=== PATIENT | male | born 1990 | race Caucasian/White ===

== ENCOUNTER 2016-11-16 12:58 | Emergency (ER) | payer SELFPAY ==
[2016-11-16] MEDS ORDERED: ACETAMINOPHEN 325 MG TABLET PO ONE (13:05)
--- NOTE | 2016-11-16 13:08 | ER Document Report ---
ED Medical Screen (RME) - General Stated Complaint: WEAKNESS Mode of Arrival: Ambulatory Information source: Patient Notes: 26 y/o M presents to ED c/o fever, headache, and generalized weakness over the last 2 days. Reports had similar symptoms approximately 2 weeks ago but had resolved. I have greeted and performed a rapid initial assessment of this patient. A comprehensive ED assessment and evaluation of the patient, analysis of test results and completion of the medical decision making process will be conducted by additional ED providers. Physical Exam - Vital signs Vitals: Temp Pulse Resp BP Pulse Ox 99.8 F 105 H 20 122/72 100 11/16/16 13:02 11/16/16 13:02 11/16/16 13:02 11/16/16 13:02 11/16/16 13:02 - General General appearance: Alert In distress: None - Respiratory Respiratory status: No respiratory distress Course - Vital Signs Vital signs: Temp Pulse Resp BP Pulse Ox 99.8 F 105 H 20 122/72 100 11/16/16 13:02 11/16/16 13:02 11/16/16 13:02 11/16/16 13:02 11/16/16 13:02
[2016-11-16 13:59] LABS: ABSOLUTE EOSINOPHILS # (AUTO) 0.3 10^3/uL (0.0-0.6); ABSOLUTE LYMPHOCYTES (AUTO) 0.5 10^3/uL (0.5-4.7); ABSOLUTE NEUT (AUTO) 7.3 10^3/uL (1.7-8.2); BASOPHILS % (AUTO) 0.3 % (0-2); EOSINOPHILS % (AUTO) 2.8 % (0-6); HEMATOCRIT 42.3 % (37.9-51.0); HEMOGLOBIN 14.4 g/dL (13.5-17.0); HGB HCT DIFFERENCE 0.9; LYMPHOCYTES % (AUTO) 5.4 % (13-45); MEAN CORPUSCULAR HEMOGLOBIN 31.4 pg (27.0-33.4); MEAN CORPUSCULAR HGB CONC 34.1 g/dL (32.0-36.0); MEAN CORPUSCULAR VOLUME 92 fl (80-97); RED CELL DISTRIBUTION WIDTH 13.1 % (11.5-14.0); SEGMENTED NEUTROPHILS % (AUTO) 80.5 % (42-78); WHITE BLOOD COUNT 9.1 10^3/uL (4.0-10.5)
[2016-11-16 14:04] LABS: APPEARANCE,URINE CLEAR; BILIRUBIN,URINE NEGATIVE (NEGATIVE); GLUCOSE, URINE NEGATIVE (NEGATIVE); KETONES,URINE NEGATIVE (NEGATIVE); LEUKOCYTE ESTERASE,URINE TRACE (NEGATIVE); NITRITE,URINE NEGATIVE (NEGATIVE); PROTEIN,URINE NEGATIVE (NEGATIVE); URINE SPECIFIC GRAVITY 1.015; UROBILINOGEN,URINE NEGATIVE mg/dL (<2.0)
[2016-11-16 14:10] LABS: ALANINE AMINOTRANSFERASE 33 U/L (21-72); ALBUMIN 4.2 g/dL (3.5-5.0); ALKALINE PHOSPHATASE 64 U/L (38-126); ANION GAP 11 (5-19); ASPARTATE AMINO TRANSFERASE 20 U/L (17-59); BILIRUBIN,TOTAL 0.5 mg/dL (0.2-1.3); BLOOD UREA NITROGEN 12 mg/dL (7-20); CALCIUM 9.7 mg/dL (8.4-10.2); CARBON DIOXIDE 28 mmol/L (22-30); CHLORIDE 101 mmol/L (98-107); CREATININE RESULT 0.93 mg/dL (0.52-1.25); GLUCOSE 96 mg/dL (75-110); POTASSIUM 4.5 mmol/L (3.6-5.0); SODIUM 139.6 mmol/L (137-145); TOTAL PROTEIN 7.9 g/dL (6.3-8.2)
[2016-11-16] MEDS ORDERED: IBUPROFEN 600 MG TABLET PO ONE (16:43)
--- NOTE | 2016-11-16 17:27 | ER Document Report ---
HPI - HPI Patient complains to provider of: headache weakness fever Onset: Other Onset/Duration: Persistent Quality of pain: Achy Severity: Mild Pain Level: 1 Context: Patient presents to the emergency department with multiple complaints to include headache fever body aches weakness. Mom reports that he started feeling bad 2 days ago. This morning woke up and he was really warm. Patient has not received his flu vaccine. Denies vomiting diarrhea. Patient is laying on exam bed with a coat on, longsleeve shirt hat with the coat germain pulled up. Denies sore throat. Associated Symptoms: Body/muscle aches, Fever, Headache, Weakness Exacerbated by: Denies Relieved by: Denies Similar symptoms previously: Yes - same symptoms 2 weeks ago Recently seen / treated by doctor: No - DERM Skin Color: Normal Past Medical History - General Information source: Patient - Social History Smoking Status: Current Every Day Smoker Cigarette use (# per day): Yes Chew tobacco use (# tins/day): No Frequency of alcohol use: None Drug Abuse: None Occupation: none Lives with: Family Family History: None Patient has suicidal ideation: No Patient has homicidal ideation: No - Medical History Medical History: Negative Renal/ Medical History: Denies: Hx Peritoneal Dialysis Surgical Hx: Negative Vertical Provider Document - CONSTITUTIONAL Agree With Documented VS: Yes Exam Limitations: No Limitations General Appearance: WD/WN, No Apparent Distress - Nontoxic looking. - INFECTION CONTROL TRAVEL OUTSIDE OF THE [place] IN LAST 30 DAYS: No - HEENT HEENT: Atraumatic, Normal ENT Exam, Normocephalic. negative: Conjuctival Injection, Pharyngeal Exudate, Pharyngeal Erythema, Tympanic Membrane Red - NECK Neck: Normal Inspection, Supple - chin to chest without c/o pain. negative: Lymphadenopathy-Left, Lymphadenopathy-Right - RESPIRATORY Respiratory: Breath Sounds Normal, No Respiratory Distress. negative: Rhonchi, Wheezing O2 Sat by Pulse Oximetry: 100 - CARDIOVASCULAR Cardiovascular: Regular Rate, Regular Rhythm - GI/ABDOMEN Gastrointestinal: Abdomen Soft, Abdomen Non-Tender - MUSCULOSKELETAL/EXTREMETIES Musculoskeletal/Extremeties: MARKO MOSES - NEURO Level of Consciousness: Awake, Alert, Appropriate Motor/Sensory: No Motor Deficit - DERM Integumentary: Warm, Dry, No Rash Course - Re-evaluation Re-evalutation: 11/16/16 17:53 Patient and mom were instructed on all lab results. Negative leukocytosis, negative flu and mono test. Instructed on the importance of taking Motrin and Tylenol as indicated push fluids good hand washing. They verbalized understanding. Patient seems irritated because he was not "sick". Patient and mom were instructed on viral illness. - Vital Signs Vital signs: Temp Pulse Resp BP Pulse Ox 99.8 F 105 H 20 122/72 100 11/16/16 13:02 11/16/16 13:02 11/16/16 13:02 11/16/16 13:02 11/16/16 13:02 - Laboratory Result Diagrams: 11/16/16 13:34 11/16/16 13:34 Laboratory results interpreted by me: 11/16/16 11/16/16 13:34 13:34 Seg Neutrophils % 80.5 H Lymphocytes % 5.4 L Ur Leukocyte Esterase TRACE H Discharge - Discharge Clinical Impression: Fever, Headache, Weakness, Elevated blood pressure reading Condition: Stable Disposition: HOME, SELF-CARE Instructions: Acetaminophen, Fever ([facility]), Viral Syndrome ([facility]), Use of Over-The -Counter Ibuprofen ([facility]), Headache ([facility]) Additional Instructions: *You have been evaluated for flu like symptoms today, fever, headache, weakness Monitor your blood pressure. Your blood pressure was elevated today. This may be because you were anxious, in pain or because you need medication. It is important to follow up with your primary care provider for full evaluation. *Increase fluid intake as discussed *Monitor your temperature, take Tylenol or motrin as indicated *Follow up with a primary care provider within one week *Return to ED for worsening condition, changes, needs, concerns, needs Forms: Elevated Blood Pressure
[2016-11-16 17:41] VITALS: BP 110/67
== END 2016-11-16 17:51 | disposition home or self-care (01) ==
LOC: ER 12:58
DX: R50.9 Fever, unspecified (principal); R51 Headache; R53.1 Weakness; R03.0 Elevated blood-pressure reading, without diagnosis of hypertension; M79.1 Myalgia; F17.210 Nicotine dependence, cigarettes, uncomplicated
CPT/HCPCS: 36415; 80053; 81001; 85025; 86308; 87804; 99284

== ENCOUNTER 2018-02-26 14:33 | Emergency (ER) | payer MEDICAID ==
[2018-02-26] MEDS ORDERED: LIDOCAINE 1% INJ-PF (10 MG/ML) 30 ML SDV INJ ONE (14:58)
--- NOTE | 2018-02-26 15:01 | ER Document Report ---
ED Medical Screen (RME) - General Chief Complaint: Abscess Stated Complaint: ABSCESSES/GROIN AND BUTTOCKS AREA Time Seen by Provider: 02/26/18 14:47 Mode of Arrival: Ambulatory Information source: Patient Notes: 27-year-old male history of MRSA presents with complaints of abscesses of 4-5 day duration 2 on buttocks one of the left thigh I have greeted and performed a rapid initial assessment of this patient. A comprehensive ED assessment and evaluation of the patient, analysis of test results and completion of the medical decision making process will be conducted by additional ED providers. PHYSICAL EXAMINATION: GENERAL: Well-appearing, well-nourished and in no acute distress. HEAD: Atraumatic, normocephalic. EYES: Pupils equal round extraocular movements intact, conjunctiva are normal. ENT: Nares patent NECK: Normal range of motion LUNGS: No respiratory distress Musculoskeletal: Normal range of motion NEUROLOGICAL: Normal speech, normal gait. PSYCH: Normal mood, normal affect. SKIN: Abscess noted of the left medial thigh 1 abscess each on buttocks TRAVEL OUTSIDE OF THE [place] IN LAST 30 DAYS: No - Related Data Allergies/Adverse Reactions: No Known Allergies Allergy (Verified 02/26/18 14:34) Past Medical History Renal/ Medical History: Denies: Hx Peritoneal Dialysis Physical Exam - Vital signs Vitals: Temp Pulse Resp BP Pulse Ox 97.5 F 75 18 137/86 H 100 02/26/18 14:43 02/26/18 14:43 02/26/18 14:43 02/26/18 14:43 02/26/18 14:43 Course - Vital Signs Vital signs: Temp Pulse Resp BP Pulse Ox 97.5 F 75 18 137/86 H 100 02/26/18 14:43 02/26/18 14:43 02/26/18 14:43 02/26/18 14:43 02/26/18 14:43
[2018-02-26] MEDS ORDERED: LIDOCAINE 4%/TETRACAINE 0.5%/EPI 0.18% 5 ML TOPICAL SOLN TOP ONE (15:54)
[2018-02-26] MEDS ORDERED: CEPHALEXIN 500 MG CAPSULE PO ONE (15:54)
[2018-02-26] MEDS ORDERED: SULFAMETHOXAZOLE/TRIMETHOPRIM 800-160 MG TABLET PO ONE (15:54)
[2018-02-26] MEDS ORDERED: IBUPROFEN 800 MG TABLET PO ONE (15:54)
[2018-02-26] MEDS ORDERED: ACETAMINOPHEN 325 MG TABLET PO ONE (15:54)
--- NOTE | 2018-02-26 15:55 | ER Document Report ---
HPI - HPI Patient complains to provider of: multiple abscess Onset: Last week Onset/Duration: Gradual Pain Level: 5 Context: 27 yo male with no hx MRSA has multiple abscess (left buttocks, right buttocks, left thigh, rash left axilla, No fever. Associated Symptoms: None Exacerbated by: Denies Relieved by: Denies - ROS ROS below otherwise negative: Yes Systems Reviewed and Negative: Yes All other systems reviewed and negative - DERM Skin Color: Normal Past Medical History - General Information source: Patient - Social History Smoking Status: Never Smoker Chew tobacco use (# tins/day): No Frequency of alcohol use: None Drug Abuse: None Lives with: Family Family History: None Patient has suicidal ideation: No Patient has homicidal ideation: No - Medical History Medical History: Negative Renal/ Medical History: Denies: Hx Peritoneal Dialysis Surgical Hx: Negative Vertical Provider Document - CONSTITUTIONAL Agree With Documented VS: Yes Exam Limitations: No Limitations General Appearance: No Apparent Distress - INFECTION CONTROL TRAVEL OUTSIDE OF THE [place] IN LAST 30 DAYS: No - HEENT HEENT: Normocephalic - NECK Neck: Supple - RESPIRATORY Respiratory: Breath Sounds Normal, No Respiratory Distress - CARDIOVASCULAR Cardiovascular: Regular Rate, Regular Rhythm - NEURO Level of Consciousness: Awake - DERM Integumentary: Abscess - induranted abscess 2 cm left buttocks, smalled papule right buttocks, folliculitis left axilla, indurated 1 cm abscess left medial lighthouse Course - Vital Signs Vital signs: Temp Pulse Resp BP Pulse Ox 97.5 F 75 18 137/86 H 100 02/26/18 14:43 02/26/18 14:43 02/26/18 14:43 02/26/18 14:43 02/26/18 14:43 Procedures - Incision and Drainage Left Buttock Time completed: 17:18 Type: Simple - x cut to left buttocks, and to left anterior medial thigh Anesthetic type: 1% Lidocaine mL's of anesthetic: 6 - total for both Blade size: 11 I&D procedure: Betadine prep applied, Sterile dressing applied Incision Method: Incision made by scalpel Discharge - Discharge Clinical Impression: Folliculitis, Left thigh abscess I&D, Left buttocks abscess I&D Condition: Good Disposition: HOME, SELF-CARE Instructions: Bactroban Ointment ([facility]), Cephalexin ([facility]), Folliculitis ([facility]), Post Incision and Drainage, Trimethoprim-Sulfa ([facility]) Additional Instructions: warm compress keflex septra antibacterial soap shower daily Small amount of Bactroban ointment in both nostrils and squeeze her nostrils together twice a day for 5 days Any lesions that you have that are small bactroban can be used to kill the bacteria Return to the emergency room any fever or worsening symptoms of the areas Take the dressings off in 2 days because there is packing in each of the areas, after you remove the dressings then used the washcloth soap and water vigorously in the shower to each area so they will close to early Prescriptions: Ibuprofen [Motrin 800 mg Tablet] 800 mg PO Q8HP PRN #30 tablet PRN Reason: Cephalexin Monohydrate [Keflex 500 mg Capsule] 500 mg PO QID #28 capsule Sulfamethoxazole/Trimethoprim [Sulfamethoxazole-Tmp Ds Tablet] 1 each PO BID # 14 tablet Forms: Return to Work
[2018-02-26] MEDS ORDERED: MUPIROCIN 2% OINTMENT 22 GM TP ONE (17:19)
[2018-02-26 17:46] VITALS: BP 130/67
== END 2018-02-26 17:46 | disposition home or self-care (01) ==
LOC: ER 14:33
DX: L02.31 Cutaneous abscess of buttock (principal); L02.416 Cutaneous abscess of left lower limb; L73.9 Follicular disorder, unspecified; R23.8 Other skin changes
CPT/HCPCS: 99283; 10061; J3490 ×6

== ENCOUNTER 2018-05-06 19:20 | Emergency (ER) | payer MEDICAID ==
--- NOTE | 2018-05-06 20:20 | ER Document Report ---
ED Medical Screen (RME) - General Chief Complaint: Foot Pain Stated Complaint: POSSIBLE INSECT BITE Time Seen by Provider: 05/06/18 20:19 Mode of Arrival: Wheelchair Information source: Patient TRAVEL OUTSIDE OF THE [place] IN LAST 30 DAYS: No - HPI Patient complains to provider of: insect bite Onset: Other - pt. with insect bite 2 days ago to R foot -- now with increased pain, redness, and swelling to foot. - Related Data Allergies/Adverse Reactions: No Known Allergies Allergy (Verified 02/26/18 14:34) Past Medical History Renal/ Medical History: Denies: Hx Peritoneal Dialysis Physical Exam - Vital signs Vitals: Temp Pulse Resp BP Pulse Ox 99.1 F 93 20 129/73 H 97 05/06/18 19:31 05/06/18 19:31 05/06/18 19:31 05/06/18 19:31 05/06/18 19:31 Course - Vital Signs Vital signs: Temp Pulse Resp BP Pulse Ox 99.1 F 93 20 129/73 H 97 05/06/18 19:31 05/06/18 19:31 05/06/18 19:31 05/06/18 19:31 05/06/18 19:31
[2018-05-06 21:33] LABS: ABSOLUTE BASOPHILS # (AUTO) 0.1 10^3/uL (0.0-0.2); ABSOLUTE EOSINOPHILS # (AUTO) 0.4 10^3/uL (0.0-0.6); ABSOLUTE MONOCYTES (AUTO) 1.2 10^3/uL (0.1-1.4); BASOPHILS % (AUTO) 0.4 % (0-2); EOSINOPHILS % (AUTO) 2.8 % (0-6); HEMATOCRIT 40.2 % (37.9-51.0); HEMOGLOBIN 13.7 g/dL (13.5-17.0); LYMPHOCYTES % (AUTO) 14.9 % (13-45); MEAN CORPUSCULAR HEMOGLOBIN 31.5 pg (27.0-33.4); MEAN CORPUSCULAR HGB CONC 34.2 g/dL (32.0-36.0); MEAN CORPUSCULAR VOLUME 92 fl (80-97); PLATELET COUNT 292 10^3/uL (150-450); RED BLOOD COUNT 4.36 10^6/uL (4.35-5.55); SEGMENTED NEUTROPHILS % (AUTO) 72.9 % (42-78); TOTAL CELLS COUNTED % (AUTO) 100 %; WHITE BLOOD COUNT 13.6 10^3/uL (4.0-10.5)
[2018-05-06 22:06] LABS: ALANINE AMINOTRANSFERASE 17 U/L (21-72); ALBUMIN 4.5 g/dL (3.5-5.0); ALKALINE PHOSPHATASE 70 U/L (38-126); ANION GAP 14 (5-19); ASPARTATE AMINO TRANSFERASE 23 U/L (17-59); BILIRUBIN,DIRECT 0.3 mg/dL (0.0-0.4); BILIRUBIN,TOTAL 0.8 mg/dL (0.2-1.3); BLOOD UREA NITROGEN 11 mg/dL (7-20); CALCIUM 9.5 mg/dL (8.4-10.2); CARBON DIOXIDE 30 mmol/L (22-30); CHLORIDE 92 mmol/L (98-107); GLUCOSE 82 mg/dL (75-110); POTASSIUM 4.2 mmol/L (3.6-5.0); SODIUM 136.3 mmol/L (137-145); TOTAL PROTEIN 8.2 g/dL (6.3-8.2)
[2018-05-07] MEDS ORDERED: ACETAMINOPHEN 325 MG TABLET PO ONE (01:26)
[2018-05-07] MEDS ORDERED: HYDROCODONE/ACETAMINOPHEN 5-325 MG (6 TAB/ER DISP) PO PRN (01:26)
[2018-05-07] MEDS ORDERED: IBUPROFEN 600 MG TABLET PO ONE (01:26)
[2018-05-07] MEDS ORDERED: MORPHINE SULFATE IR 15 MG TABLET PO ONE (01:26)
[2018-05-07] MEDS ORDERED: CEPHALEXIN 500 MG CAPSULE PO ONE (01:26)
[2018-05-07] MEDS ORDERED: ONDANSETRON ODT 4 MG TAB (6 TAB/ER DISP) PO PRN (01:26)
[2018-05-07] MEDS ORDERED: SULFAMETHOXAZOLE/TRIMETHOPRIM 800-160 MG TABLET PO ONE (01:26)
--- NOTE | 2018-05-07 01:32 | ER Document Report ---
ED General - General Chief Complaint: Foot Pain Stated Complaint: POSSIBLE INSECT BITE Time Seen by Provider: 05/06/18 20:19 Mode of Arrival: Wheelchair Notes: Patient is a 27-year-old male without chronic medical problems who presents with 2 days of a rash and swelling to his right foot. The patient states that the area started as a possible spider bite although he is uncertain whether or not that is the accurate origin of the area of irritation. He states that since that time he has noted swelling and pain to the area that has gotten progressively worse. He describes a severe, throbbing, constant pain to the area worsened by touching the area or attempting to ambulate. Nothing improves the pain. States this feels similar to when he has had a MRSA infection on his foot in the past. He denies any history of immune compromise, IV drug use. No history of diabetes. He denies any fever or constitutional symptoms. He has not seen his general doctor regarding today's concerns. TRAVEL OUTSIDE OF THE [place] IN LAST 30 DAYS: No - Related Data Allergies/Adverse Reactions: No Known Allergies Allergy (Verified 05/06/18 20:21) Past Medical History - General Information source: Patient - Social History Smoking Status: Current Some Day Smoker Frequency of alcohol use: None Drug Abuse: None Lives with: Family Family History: Reviewed & Not Pertinent Patient has suicidal ideation: No Patient has homicidal ideation: No Renal/ Medical History: Denies: Hx Peritoneal Dialysis Review of Systems - Review of Systems Notes: Constitutional: Negative for fever. HENT: Negative for sore throat. Eyes: Negative for visual changes. Cardiovascular: Negative for chest pain. Respiratory: Negative for shortness of breath. Gastrointestinal: Negative for abdominal pain, vomiting or diarrhea. Genitourinary: Negative for dysuria. Musculoskeletal: Negative for back pain. Skin: Positive for right foot abscess and associated cellulitis Neurological: Negative for headaches, weakness or numbness. 10 point ROS negative except as marked above and in HPI. Physical Exam - Vital signs Vitals: Temp Pulse Resp BP Pulse Ox 99.1 F 93 20 129/73 H 97 05/06/18 19:31 05/06/18 19:31 05/06/18 19:31 05/06/18 19:31 05/06/18 19:31 Interpretation: Normal Notes: PHYSICAL EXAMINATION: GENERAL: Well-appearing, well-nourished and in no acute distress. HEAD: Atraumatic, normocephalic. EYES: Pupils equal round and reactive to light, extraocular movements intact, sclera anicteric, conjunctiva are normal. ENT: nares patent, oropharynx clear without exudates. Moist mucous membranes. NECK: Normal range of motion, supple without lymphadenopathy LUNGS: Breath sounds clear to auscultation bilaterally and equal. No wheezes rales or rhonchi. HEART: Regular rate and rhythm without murmurs ABDOMEN: Soft, nontender, normoactive bowel sounds. No guarding, no rebound. No masses appreciated. EXTREMITIES: Normal range of motion, no pitting or edema. No cyanosis. NEUROLOGICAL: No focal neurological deficits. Moves all extremities spontaneously and on command. PSYCH: Normal mood, normal affect. SKIN: Warm, Dry, normal turgor, there blister with associated surrounding cellulitis on the lateral and plantar surface of the distal right foot near the great toe. Total cellulitis areas approximately 2 x 3 cm Course - Re-evaluation Re-evalutation: 05/07/18 01:29 Patient presents with a blister with associated surrounding cellulitis on the lateral and plantar surface of the distal right foot near the great toe. The blister itself was debrided with removal of all the overlying epidermal tissue. Extensive amounts of purulent material were obtained underneath the blister. The wound was debrided until healthy, sensate tissue was encountered. The wound was then cleaned and dressed. The patient is otherwise nontoxic in appearance. No spreading redness to the remainder of the foot or calf. Patient has vitals that are within normal limits, minimally elevated white blood cell count. Patient was started on cephalexin and Bactrim for strep and MRSA coverage. I have emphasized heavily with the patient that I am concerned about the degree of this infection and want him to have very low threshold to return to the emergency department. We have extensively reviewed signs and symptoms that would be consistent with bacteremia or progressing localized infection. I have emphasized the need to follow-up closely with his primary care doctor or return for a wound check to the emergency room within the next 48 hours. He has agreed, has explained back to me an understanding of the severity of this infection and the need for close follow-up as well as returning to the emergency department immediately if there is any progression of the infection. At this point I do not believe the patient mandates hospitalization for IV antibiotics or MRI imaging of the foot however I would deem these measures being indicated if the patient has any progression of the current infection. 05/07/18 02:55 - Vital Signs Vital signs: Temp Pulse Resp BP Pulse Ox 98.0 F 73 14 129/74 H 98 05/07/18 01:50 05/07/18 01:50 05/07/18 01:50 05/07/18 01:50 05/07/18 01:50 - Laboratory Result Diagrams: 05/06/18 20:53 05/06/18 20:53 Laboratory results interpreted by me: 05/06/18 05/06/18 20:53 20:53 WBC 13.6 H Absolute Neutrophils 10.0 H Sodium 136.3 L Chloride 92 L ALT 17 L Procedures - Incision and Drainage Right Foot Type: Complex Anesthetic type: 1% Lidocaine mL's of anesthetic: 4 Blade size: 11 I&D procedure: Betadine prep applied Incision Method: Incision made by scalpel Amount/type of drainage: 5 cc of purulent drainage Discharge - Discharge Clinical Impression: Foot abscess, right, Cellulitis of right foot Condition: Good Disposition: HOME, SELF-CARE Additional Instructions: The rash is likely due to infection of your skin. You need to take the antibiotics as prescribed. Do not stop even if the rash goes away until you have completed all the antibiotics. The area of redness was traced out here in the emergency department with a marking pen. You need to return to emergency department if the redness spreads outside of this area by more than 2 cm in any direction. You should also return if you develop fevers with temperature greater than 101, persistent vomiting, worsening pain, or have any other symptoms that are concerning to you. As we discussed, I am concerned about the degree of your infection and I want you to have a very low threshold to return to the emergency department particularly for any of the above symptoms we discussed. I also want you to follow-up with your primary care doctor on Wednesday and if you are unable to get to an appointment I want you to come back to the emergency department for recheck of your wound. Prescriptions: Cephalexin Monohydrate [Keflex 500 mg Capsule] 500 mg PO Q6H 7 Days capsule Sulfamethoxazole/Trimethoprim [Bactrim Ds Tablet] 2 tab PO BID #28 tablet Forms: Return to Work
[2018-05-07 01:51] VITALS: BP 129/74
== END 2018-05-07 02:17 | disposition home or self-care (01) ==
LOC: ER 19:20
DX: L02.611 Cutaneous abscess of right foot (principal); L03.115 Cellulitis of right lower limb; F17.200 Nicotine dependence, unspecified, uncomplicated; Z86.14 Personal history of Methicillin resistant Staphylococcus aureus infection
CPT/HCPCS: 99283; 36415; 85025; 80053; 10060; J3490 ×3

== ENCOUNTER 2018-05-08 11:21 | Inpatient (IN) | payer MEDICAID ==
[2018-05-08] MEDS ORDERED: ACETAMINOPHEN 325 MG TABLET PO ONE (11:53)
[2018-05-08] MEDS ORDERED: ONDANSETRON HCL INJ/PF 4 MG/2 ML SDV IV ONE (11:54)
[2018-05-08] MEDS ORDERED: HYDROMORPHONE HCL INJ/PF 2 MG/ML AMPULE IV ONE (11:54)
--- NOTE | 2018-05-08 11:56 | ER Document Report ---
ED General - General Mode of Arrival: Ambulatory Information source: Patient TRAVEL OUTSIDE OF THE [place] IN LAST 30 DAYS: No <SHELBY TOBIN - Last Filed: 05/08/18 12:11> <HELEN HERNANDEZ - Last Filed: 05/08/18 15:29> - General Chief Complaint: Wound Infection Stated Complaint: RIGHT FOOT PAIN,NAUSEA Time Seen by Provider: 05/08/18 11:41 Notes: Patient is a 27 year old male presenting to the emergency department complaining of right great toe pain. Patient was seen in the emergency department 2 days ago complaining of a rash and swelling on the right great toe. Patient was diagnosed with cellulitis and a foot abscess of the right foot and discharged home with Keflex, Bactrim and a Vicodin dispense back. Today, patient states the pain has worsened and complains of chills. (SHELBY TOBIN) - Related Data Allergies/Adverse Reactions: No Known Allergies Allergy (Verified 05/08/18 11:26) Past Medical History - General Information source: Patient - Social History Smoking Status: Current Every Day Smoker Cigarette use (# per day): Yes - 1/2 PPD Chew tobacco use (# tins/day): No Smoking Education Provided: No Family History: Reviewed & Not Pertinent Infectious Medical History: Reports: Hx MRSA <SHELBY TOBIN - Last Filed: 05/08/18 12:11> Review of Systems - Review of Systems Constitutional: See HPI, Chills EENT: No symptoms reported Cardiovascular: No symptoms reported Respiratory: No symptoms reported Gastrointestinal: No symptoms reported Genitourinary: No symptoms reported Male Genitourinary: No symptoms reported Musculoskeletal: See HPI Skin: No symptoms reported Hematologic/Lymphatic: No symptoms reported Neurological/Psychological: No symptoms reported -: Yes All other systems reviewed and negative <SHELBY TOBIN - Last Filed: 05/08/18 12:11> Physical Exam <SHELBY TOBIN - Last Filed: 05/08/18 12:11> <HELEN HERNANDEZ - Last Filed: 05/08/18 15:29> - Vital signs Vitals: Temp Pulse Resp BP Pulse Ox 98.4 F 125 H 32 H 119/99 H 100 05/08/18 11:25 05/08/18 11:25 05/08/18 11:25 05/08/18 11:25 05/08/18 11:25 - Notes Notes: GENERAL: Alert, moaning in bed, appears uncomfortable. No acute distress. HEAD: Normocephalic, atraumatic. EYES: Pupils equal, round, and reactive to light. Extraocular movements intact. ENT: Oral mucosa moist, tongue midline. NECK: Full range of motion. Supple. Trachea midline. LUNGS: Clear to auscultation bilaterally, no wheezes, rales, or rhonchi. No respiratory distress. HEART: Tachycardic. No murmurs, gallops, or rubs. EXTREMITIES: Moves all 4 extremities spontaneously. NEUROLOGICAL: Alert and oriented x3. Normal speech. PSYCH: Normal affect, normal mood. SKIN: Warm, dry, normal turgor. Ball of right foot extending to the medial distal foot over first metatarsal is a swollen previously debrided wound, approximately 1x3cm with fresh granulating tissue. Dorsally extending from wound edges is some erythema. (SHELBY TOBIN) Course - Laboratory Result Diagrams: 05/08/18 11:40 05/08/18 11:40 <SHELBY TOBIN - Last Filed: 05/08/18 12:11> - Laboratory Result Diagrams: 05/08/18 11:40 05/08/18 11:40 - Diagnostic Test Radiology reviewed: Image reviewed - X-ray of the right foot does not show any gas in the soft tissues or bony erosions - Consults Dr. Villa Time consulted: 14:20 Consulted provider: will come to ER <HELEN HERNANDEZ - Last Filed: 05/08/18 15:29> - Re-evaluation Re-evalutation: 05/08/18 15:24 The patient became more hypotensive after about 1.5 L normal saline. He will get 1/3 L after the second 1 finishes. Blood pressure is now 88/65 with a pulse of 89. (HELEN HERNANDEZ) - Vital Signs Vital signs: Temp Pulse Resp BP Pulse Ox 98.9 F 125 H 16 107/68 95 05/08/18 14:56 05/08/18 11:25 05/08/18 14:01 05/08/18 14:00 05/08/18 14:01 - Laboratory Laboratory results interpreted by me: 05/08/18 05/08/18 05/08/18 11:40 11:40 11:40 WBC 2.5 L D Seg Neutrophils % 80.4 H Monocytes % 0.6 L Absolute Monocytes 0.0 L Lactic Acid 3.9 H ALT 15 L Urine Urobilinogen 05/08/18 12:40 WBC Seg Neutrophils % Monocytes % Absolute Monocytes Lactic Acid ALT Urine Urobilinogen 2.0 H Critical Care Note - Critical Care Note Total time excluding time spent on procedures (mins): 40 <HELEN HERNANDEZ - Last Filed: 05/08/18 15:29> Discharge <SHELBY TOBIN - Last Filed: 05/08/18 12:11> - Discharge Admitting Provider: Hospitalist Unit Admitted: [facility] <HELEN HERNANDEZ - Last Filed: 05/08/18 15:29> - Discharge Clinical Impression: Cellulitis of right foot Fever Qualifiers: Fever type: unspecified Qualified Code(s): R50.9 - Fever, unspecified Neutropenia Qualifiers: Neutropenia type: unspecified Qualified Code(s): D70.9 - Neutropenia, unspecified Sepsis Qualifiers: Sepsis type: sepsis due to unspecified organism Qualified Code(s): A41.9 - Sepsis, unspecified organism Hypotension Qualifiers: Hypotension type: unspecified hypotension type Qualified Code(s): I95.9 - Hypotension, unspecified Condition: Stable Disposition: ADMITTED INPATIENT Scribe Attestation: 05/08/18 12:25 I personally performed the services described in the documentation, reviewed and edited the documentation which was dictated to the scribe in my presence, and it accurately records my words and actions. (HELEN HERNANDEZ) Scribe Documentation - Scribe Written by Caseyibluci:: Irina Lopez, 05/08/2018 12:10 acting as scribe for :: Shayy <SHELBY TOBIN - Last Filed: 05/08/18 12:11>
[2018-05-08] MEDS ORDERED: KETOROLAC TROMETHAMINE INJ/PF 30 MG/1 ML SDV IV ONE (11:57)
[2018-05-08 12:14] LABS: ALANINE AMINOTRANSFERASE 15 U/L (21-72); ALBUMIN 4.4 g/dL (3.5-5.0); ALKALINE PHOSPHATASE 87 U/L (38-126); ANION GAP 17 (5-19); ASPARTATE AMINO TRANSFERASE 22 U/L (17-59); BILIRUBIN,DIRECT 0.3 mg/dL (0.0-0.4); BILIRUBIN,TOTAL 0.9 mg/dL (0.2-1.3); BLOOD UREA NITROGEN 15 mg/dL (7-20); CALCIUM 9.6 mg/dL (8.4-10.2); CARBON DIOXIDE 23 mmol/L (22-30); CHLORIDE 101 mmol/L (98-107); CREATINE KINASE 141 U/L (55-170); GLUCOSE 99 mg/dL (75-110); POTASSIUM 4.3 mmol/L (3.6-5.0); SODIUM 140.5 mmol/L (137-145); TOTAL PROTEIN 8.2 g/dL (6.3-8.2)
[2018-05-08 12:15] LABS: BASOPHILS % (AUTO) 0.1 % (0-2); HEMOGLOBIN 14.3 g/dL (13.5-17.0); TOTAL CELLS COUNTED % (AUTO) 100 %
[2018-05-08 12:23] LABS: ABSOLUTE LYMPHOCYTES (AUTO) 0.5 10^3/uL (0.5-4.7); EOSINOPHILS % (AUTO) 0.4 % (0-6); HEMATOCRIT 41.6 % (37.9-51.0); LYMPHOCYTES % (AUTO) 18.5 % (13-45); MEAN CORPUSCULAR HEMOGLOBIN 31.5 pg (27.0-33.4); MEAN CORPUSCULAR HGB CONC 34.3 g/dL (32.0-36.0); MEAN CORPUSCULAR VOLUME 92 fl (80-97); MONOCYTES % (AUTO) 0.6 % (3-13); PLATELET COUNT 254 10^3/uL (150-450); RED BLOOD COUNT 4.54 10^6/uL (4.35-5.55); RED CELL DISTRIBUTION WIDTH 12.9 % (11.5-14.0); SEGMENTED NEUTROPHILS % (AUTO) 80.4 % (42-78)
[2018-05-08] MEDS ORDERED: VANCOMYCIN HCL INJ 1000 MG VIAL IV ONE (12:24)
[2018-05-08 12:25] LABS: WHITE BLOOD COUNT 2.5 10^3/uL (4.0-10.5)
[2018-05-08] MEDS ORDERED: NORMAL SALINE 1000 ML 1,000 ML IV ONE ×3 (12:51→15:23)
--- NOTE | 2018-05-08 14:33 | RADIOLOGY REPORT (SQ) ---
EXAM DESCRIPTION: FOOT RIGHT COMPLETE COMPLETED DATE/TIME: 05/08/2018 2:23 pm REASON FOR STUDY: Cellulitis, concern for osteomyelitis COMPARISON: None. NUMBER OF VIEWS: Three views. TECHNIQUE: AP, lateral and oblique radiographic images acquired of the right foot. LIMITATIONS: None. FINDINGS: MINERALIZATION: Normal. BONES: No acute fracture or dislocation. No worrisome bone lesions. JOINTS: No effusions. SOFT TISSUES: No soft tissue swelling. No foreign body. OTHER: No other significant finding. IMPRESSION: NEGATIVE STUDY OF THE RIGHT FOOT. NO RADIOGRAPHIC EVIDENCE OF ACUTE INJURY. TECHNICAL DOCUMENTATION: JOB ID: [id number] Patient Feed- All Rights Reserved Reading location - IP/workstation name: MARY
[2018-05-08 14:41] LABS: APPEARANCE,URINE SLIGHTLY-CLOUDY; BILIRUBIN,URINE NEGATIVE (NEGATIVE); COLOR,URINE YELLOW; GLUCOSE, URINE NEGATIVE (NEGATIVE); KETONES,URINE NEGATIVE (NEGATIVE); LEUKOCYTE ESTERASE,URINE NEGATIVE (NEGATIVE); NITRITE,URINE NEGATIVE (NEGATIVE); PROTEIN,URINE NEGATIVE (NEGATIVE); URINE SPECIFIC GRAVITY 1.026
[2018-05-08] MEDS ORDERED: ONDANSETRON HCL INJ/PF 4 MG/2 ML SDV IV PRN (15:20)
[2018-05-08] MEDS: RINGERS SOLUTION,LACTATED 1,000 ML IV PRN ×2 (16:28→23:39)
[2018-05-08] MEDS ORDERED: DEXTROSE 5%-WATER 250 ML with NOREPINEPHRINE BITARTRATE 4 MG IV PRN ×2 (16:39)
[2018-05-08] MEDS ORDERED: NOREPINEPHRINE BITARTRATE INJ/PF 4 MG/4 ML SDV IV ONE ×2 (16:41→22:43)
[2018-05-08] MEDS ORDERED: NORMAL SALINE 1000 ML 1,000 ML IV PRN (16:54)
[2018-05-08] MEDS ORDERED: DOPAMINE HCL/DEXTROSE 5%-WATER 800 MG/250 ML RTUINJ IV ONE (17:58)
[2018-05-08] MEDS ORDERED: LIDOCAINE 1% INJ-PF (10 MG/ML) 30 ML SDV ONE (18:18)
[2018-05-08] MEDS ORDERED: DOPAMINE HCL/DEXTROSE 5%-WATER 800 MG/250 ML RTUINJ IV PRN (18:19)
--- NOTE | 2018-05-08 18:56 | PDOC H&P ---
History of Present Illness Admission Date/PCP: 05/08/18 15:10 Patient complains of: Uncontrolled pain and bleeding of his left foot. History of Present Illness: VISHNU FINK is a 27 year old male who really has no past medical history. He states that he started noticing left foot erythema and pain on Wednesday of last week. He came to the ED on Wednesday. His foot was I & D'd in the ED. He was discharged on keflex and bactrim. The patient states that this morning he awoke to find his foot excrutiating painfull and bleeding. When in the ED the patient was found to be febrile, to have leukopenia when he had had leukocytosis on Wednesday, and tachycardia. Blood cultures were drawn. The patient was given pain control, IV fluids, and IV antibiotics. When I went to see the patient he was quite somnolent due to recent pain medication. Past Medical History Cardiac Medical History: Reports: None Pulmonary Medical History: Reports: None Endocrine Medical History: Reports: None Renal/ Medical History: Reports: None Malignancy Medical History: Reports: None GI Medical History: Reports: None Musculoskeltal Medical History: Reports: None Skin Medical History: Reports: None Psychiatric Medical History: Reports: None Traumatic Medical History: Reports: None Hematology: Reports: None Infectious Medical History: Reports: Methicillin-Resistant Staph Aureus Past Surgical History Past Surgical History: Reports: Other - I & D of the left foot. Social History Smoking Status: Current Every Day Smoker Family History Family History: Reviewed & Not Pertinent Parental Family History Reviewed: Yes Children Family History Reviewed: Yes Sibling(s) Family History Reviewed.: Yes Medication/Allergy Home Medications: No Home Medications 05/08/18 Allergies/Adverse Reactions: No Known Allergies Allergy (Verified 05/08/18 15:48) Review of Systems Constitutional: PRESENT: chills, fever(s) Eyes: ABSENT: visual disturbances Ears: ABSENT: hearing changes Nose, Mouth, and Throat: ABSENT: headache(s), sore throat, vertigo Cardiovascular: ABSENT: chest pain, dyspnea on exertion, orthropnea, palpitations Respiratory: ABSENT: cough, dyspnea, sputum Gastrointestinal: ABSENT: abdominal pain, constipation, dysphagia, hematemesis, hematochezia, nausea, vomiting Genitourinary: ABSENT: difficulty urinating, dysuria Integumentary: PRESENT: wounds - Left foot.. ABSENT: erythema, rash Neurological: ABSENT: abnormal speech, confusion, focal weakness, frequent falls , syncope, tingling, vertigo, weakness Psychiatric: ABSENT: anxiety, depression Endocrine: ABSENT: cold intolerance, heat intolerance, polyphagia, polyuria Hematologic/Lymphatic: ABSENT: easy bleeding, easy bruising, lymphadenopathy Physical Exam Vital Signs: Temp Pulse Resp BP Pulse Ox 97.6 F 125 H 17 89/59 L 100 05/08/18 16:31 05/08/18 11:25 05/08/18 17:17 05/08/18 17:17 05/08/18 17:17 Intake & Output 05/07/18 05/08/18 05/09/18 06:59 06:59 06:59 Intake Total 1999 Balance 1999 General appearance: PRESENT: no acute distress, well-nourished, other - Arouseable, but somnolent. Head exam: PRESENT: atraumatic, normocephalic Eye exam: PRESENT: EOMI, PERRLA, other - No scleral injection. ABSENT: nystagmus, scleral icterus Ear exam: ABSENT: bleeding, drainage, normal external ear exam Mouth exam: PRESENT: dry mucosa, neck supple, tongue midline Throat exam: ABSENT: tonsillar erythema, tonsillar exudate, tonsillogmegaly Neck exam: PRESENT: full ROM. ABSENT: JVD, lymphadenopathy, meningismus, tenderness, thyromegaly Respiratory exam: PRESENT: other - No increased work of breathing. ABSENT: rales, rhonchi, wheezes Cardiovascular exam: PRESENT: RRR. ABSENT: gallop, rubs, systolic murmur Pulses: PRESENT: normal carotid pulses, normal dorsalis pedis pul GI/Abdominal exam: PRESENT: soft. ABSENT: distended, hernia, mass, normal bowel sounds, organolmegaly, tenderness Rectal exam: PRESENT: deferred Extremities exam: PRESENT: other - Left foot is bandaged.. ABSENT: calf tenderness, joint swelling Neurological exam: PRESENT: awake, oriented to person, oriented to place, oriented to time, oriented to situation, CN II-XII grossly intact, motor sensory deficit, other - Somnolent due to recent administration of pain medication. Psychiatric exam: PRESENT: appropriate affect, normal mood Skin exam: PRESENT: dry, intact, warm Results Laboratory Results: 05/08/18 15:50 Lactic Acid 2.4 H 05/08/18 05/08/18 05/08/18 11:40 11:40 11:40 WBC 2.5 L D RBC 4.54 Hgb 14.3 Hct 41.6 MCV 92 MCH 31.5 MCHC 34.3 RDW 12.9 Plt Count 254 Sodium 140.5 Potassium 4.3 Chloride 101 Carbon Dioxide 23 Anion Gap 17 BUN 15 Creatinine 0.80 Glucose 99 Lactic Acid 3.9 H Calcium 9.6 Total Bilirubin 0.9 Direct Bilirubin 0.3 AST 22 ALT 15 L Alkaline Phosphatase 87 Creatine Kinase 141 Total Protein 8.2 Albumin 4.4 Urine Color Urine Appearance Urine pH Ur Specific [place] Urine Nitrite Urine Urobilinogen Ur Leukocyte Esterase Urine WBC (Auto) Urine RBC (Auto) U Hyaline Cast (Auto) 05/08/18 05/08/18 12:40 15:50 WBC RBC Hgb Hct MCV MCH MCHC RDW Plt Count Sodium Potassium Chloride Carbon Dioxide Anion Gap BUN Creatinine Glucose Lactic Acid 2.4 H Calcium Total Bilirubin Direct Bilirubin AST ALT Alkaline Phosphatase Creatine Kinase Total Protein Albumin Urine Color YELLOW Urine Appearance SLIGHTLY-CLOUDY Urine pH 5.0 Ur Specific [place] 1.026 Urine Nitrite NEGATIVE Urine Urobilinogen 2.0 H Ur Leukocyte Esterase NEGATIVE Urine WBC (Auto) 1 Urine RBC (Auto) 1 U Hyaline Cast (Auto) 7 Impressions: Foot X-Ray 05/08/18 13:34 IMPRESSION: NEGATIVE STUDY OF THE RIGHT FOOT. NO RADIOGRAPHIC EVIDENCE OF ACUTE INJURY. Assessment & Plan - Diagnosis (1) Cellulitis of right foot Is this a current diagnosis for this admission?: Yes Plan: Blood cultures taken. Pt has received vancomycin. I have started him on zosyn and vanc. (2) Fever Qualifiers: Fever type: unspecified Qualified Code(s): R50.9 - Fever, unspecified Is this a current diagnosis for this admission?: Yes Plan: The patient is septic. Sepsis protocol has been initiated. (3) Hypotension Qualifiers: Hypotension type: unspecified hypotension type Qualified Code(s): I95.9 - Hypotension, unspecified Is this a current diagnosis for this admission?: Yes Plan: The patient has received 3 L IV NS. His systolic pressure remained in the 80's. Levophed was started in the ED and still the patient's pressure remained in the 80's. I have consulted Dr. Scales for placement of a central line and have added a dopamine drip and stress doses of steroids. The patient will go to the ICU. (4) Neutropenia Qualifiers: Neutropenia type: unspecified Qualified Code(s): D70.9 - Neutropenia, unspecified Is this a current diagnosis for this admission?: Yes Plan: Due to sepsis. IV antibiotics have been initiated. Steroids have been started, and blood cultures taken. (5) Sepsis Qualifiers: Sepsis type: sepsis due to unspecified organism Qualified Code(s): A41.9 - Sepsis, unspecified organism Is this a current diagnosis for this admission?: Yes Plan: Blood cultures pending. IV vancomycin and zosyn. The patient has received 3L O2. He has received levophed. A central line is being placed. Dopamine has been added. (6) Foot abscess, right Is this a current diagnosis for this admission?: Yes Plan: Consult podiatry in the am. - Time Time Spent: Greater than 70 Minutes Medications reviewed and adjusted accordingly: Yes - Inpatient Certification Based on my medical assessment, after consideration of the patient's comorbidities, presenting symptoms, or acuity I expect that the services needed warrant INPATIENT care.: Yes I certify that my determination is in accordance with my understanding of Medicare's requirements for reasonable and necessary INPATIENT services [42 CFR 412.3e].: Yes Medical Necessity: Failure to Improve With Outpatient Therapy, Need Close Monitoring Due to Risk of Patient Decompensation, Need For IV Fluids, Need For Continuous Telemetry Monitoring, Need for Pain Control, Need for IV Antibiotics , Need for Surgery, Risk of Complication if Not Cared For in Hospital
--- NOTE | 2018-05-08 20:29 | RADIOLOGY REPORT (SQ) ---
EXAM DESCRIPTION: CHEST SINGLE VIEW COMPLETED DATE/TIME: 05/08/2018 6:50 pm REASON FOR STUDY: Central line placement COMPARISON: None. EXAM PARAMETERS: NUMBER OF VIEWS: One view. TECHNIQUE: Single frontal radiographic view of the chest acquired. RADIATION DOSE: NA LIMITATIONS: None. FINDINGS: LUNGS AND PLEURA: No consolidation, pneumothorax or pleural effusion. MEDIASTINUM AND HILAR STRUCTURES: No masses. Contour normal. HEART AND VASCULAR STRUCTURES: Heart normal in size. Normal vasculature. BONES: No acute findings. HARDWARE: There is a left-sided central line with the tip overlying the region of the SVC. IMPRESSION: No pneumothorax status post central line placement. TECHNICAL DOCUMENTATION: JOB ID: [id number] 2010 [employer]- All Rights Reserved Reading location - IP/workstation name: [email or web address]
[2018-05-08] MEDS: AZTREONAM 1 GM in DEXTROSE 5%-WATER 50 ML IV SCH (20:42)
[2018-05-08] MEDS: VANCOMYCIN HCL 1,250 MG in DEXTROSE 5%-WATER 250 ML IV SCH (22:39)
[2018-05-08] MEDS: HYDROCORTISONE SOD SUCCINATE INJ/PF 100 MG/2 ML SDV IV SCH (22:51)
[2018-05-09] MEDS ORDERED: VANCOMYCIN HCL 0 MG in DEXTROSE 5%-WATER 250 ML IV NR ×2
[2018-05-09] MEDS: KETOROLAC TROMETHAMINE INJ/PF 30 MG/1 ML SDV IV PRN ×2 (01:22→08:16)
[2018-05-09] MEDS: AZTREONAM 1 GM in DEXTROSE 5%-WATER 50 ML IV SCH ×3 (02:22→17:46)
[2018-05-09] MEDS: VANCOMYCIN HCL 1,250 MG in DEXTROSE 5%-WATER 250 ML IV SCH ×3 (05:09→22:16)
[2018-05-09] MEDS: HYDROCORTISONE SOD SUCCINATE INJ/PF 100 MG/2 ML SDV IV SCH ×3 (05:10→22:15)
--- NOTE | 2018-05-09 06:31 | OPERATIVE REPORT E ---
Operative Report NAME: VISHNU FINK : 1990 AGE: 27Y DATE OF SURGERY: 05/08/2018 ROOM: ED01 PREOPERATIVE DIAGNOSIS: PATIENT IN SEPTIC SHOCK AND NEEDED A CENTRAL LINE. POSTOPERATIVE DIAGNOSIS: PATIENT IN SEPTIC SHOCK AND NEEDED A CENTRAL LINE. OPERATION: Insertion of left subclavian triple lumen catheter. SURGEON: CRISTIN GIBBS M.D. ANESTHESIA: Local. PROCEDURE: After adequate anesthesia, patient was placed in Trendelenburg position and the left chest and neck were then prepped and draped in usual sterile fashion. Local anesthesia infiltrated along the left infraclavicular area and the left subclavian vein punctured and guidewire passed through the needle towards the area of the superior vena cava. Needle was removed and puncture site dilated and a triple lumen catheter inserted through the guidewire to a distance of about 17 cm. Catheter anchored to the skin with 3-0 Silk. All of the 3 ports aspirated blood easily. Then instilled saline easily. MyPatch placed at the surgeon site and a transparent sterile dressing was placed over the myPatch and catheter. A chest x-ray will be obtained for placement and to rule out any evidence of pneumothorax. DICTATING PHYSICIAN: CRISTIN GIBBS M.D. [id number] PHY#: [id number] ID: [id number] JOB#: [id number] ACCT: [id number] cc:CRISTIN GIBBS M.D. >
[2018-05-09 06:35] LABS: HEMATOCRIT 36.8 % (37.9-51.0); MEAN CORPUSCULAR HEMOGLOBIN 30.2 pg (27.0-33.4); MEAN CORPUSCULAR HGB CONC 32.7 g/dL (32.0-36.0); MEAN CORPUSCULAR VOLUME 92 fl (80-97); PLATELET COUNT 191 10^3/uL (150-450); RED BLOOD COUNT 3.99 10^6/uL (4.35-5.55); RED CELL DISTRIBUTION WIDTH 13.3 % (11.5-14.0)
[2018-05-09 06:48] LABS: ANION GAP 12 (5-19); BLOOD UREA NITROGEN 15 mg/dL (7-20); CALCIUM 8.7 mg/dL (8.4-10.2); CARBON DIOXIDE 25 mmol/L (22-30); CHLORIDE 104 mmol/L (98-107); GLUCOSE 109 mg/dL (75-110); POTASSIUM 4.6 mmol/L (3.6-5.0)
[2018-05-09 07:07] LABS: ABSOLUTE LYMPHOCYTES# (MANUAL) 0.6 10^3/uL (0.5-4.7); ABSOLUTE MONOCYTES # (MANUAL) 0.3 10^3/uL (0.1-1.4); ABSOLUTE NEUTROPHILS# (MANUAL) 29.7 10^3/uL (1.7-8.2); BASOPHILS % (MANUAL) 0 % (0-2); EOSINOPHILS % (MANUAL) 0 % (0-6); LYMPHOCYTES % (MANUAL) 2 % (13-45); MONOCYTES % (MANUAL) 1 % (3-13); SEGMENTED NEUTROPHILS % (MAN) 65 % (42-78); TOTAL CELLS COUNTED 100
[2018-05-09 07:08] LABS: PLATELET COMMENT ADEQUATE
[2018-05-09 07:10] LABS: RBC MORPHOLOGY COMMENT NORMO-CYTIC/CHROMIC
[2018-05-09 07:11] LABS: BAND NEUTROPHILS % (MANUAL) 32 % (3-5)
[2018-05-09] MEDS: RINGERS SOLUTION,LACTATED 1,000 ML IV PRN ×3 (07:11→20:40)
[2018-05-09 07:43] LABS: WHITE BLOOD COUNT 30.6 10^3/uL (4.0-10.5)
[2018-05-09] MEDS: ENOXAPARIN SODIUM INJ 40 MG/0.4 ML DISP.SYRIN SUBCUT SCH (10:20)
[2018-05-09] MEDS ORDERED: GLUCAGON,HUMAN RECOMB 1 MG INJ SUBCUT PRN (11:49)
[2018-05-09] MEDS ORDERED: DEXTROSE 50%-WATER 25 GM/50 ML DISP.SYRIN IV PRN ×2 (11:49)
[2018-05-09] MEDS ORDERED: DEXTROSE 40% GEL 15 GM TUBE PO PRN ×2 (11:49)
[2018-05-09] MEDS: HYDROMORPHONE HCL INJ/PF 2 MG/ML AMPULE IV PRN ×5 (12:04→22:46)
[2018-05-09] MEDS ORDERED: ONDANSETRON HCL INJ/PF 4 MG/2 ML SDV IV PRN (12:30)
[2018-05-09] MEDS ORDERED: FENTANYL CITRATE INJ/PF 100 MCG/2 ML AMPUL ONE (13:36)
[2018-05-09] MEDS ORDERED: PROPOFOL INJ 200 MG/20 ML VIAL IV ONE (13:36)
[2018-05-09] MEDS ORDERED: MIDAZOLAM 2 MG/2 ML INJ ONE (13:36)
[2018-05-09] MEDS ORDERED: BUPIVACAINE HCL 0.25 % INJ/PF (2.5 MG/1 ML) 30 ML VIAL ONE (13:47)
[2018-05-09] MEDS ORDERED: MEPERIDINE HCL/PF INJ 25 MG/1 ML DISP.SYRIN IV PRN (14:14)
[2018-05-09] MEDS ORDERED: FENTANYL CITRATE INJ/PF 100 MCG/2 ML AMPUL IV PRN ×3 (14:14)
[2018-05-09] MEDS ORDERED: DIPHENHYDRAMINE HCL 50 MG/ML VIAL IV PRN (14:14)
[2018-05-09] MEDS ORDERED: HYDROMORPHONE HCL INJ/PF 2 MG/ML AMPULE ONE (14:17)
--- NOTE | 2018-05-09 14:25 | Operative Report ---
Operative Report DATE OF SURGERY: 05/09/18 PREOPERATIVE DIAGNOSIS: Sepsis with deep soft tissue infection right foot POSTOPERATIVE DIAGNOSIS: Same OPERATION: Excisional debridement of skin, subcutaneous tissue, fascia of the right foot at the plantar surface of the great toe SURGEON: HUNTER LATHAM ANESTHESIA: GA TISSUE REMOVED OR ALTERED: Skin, subcutaneous tissue, superficial fascia COMPLICATIONS: None ESTIMATED BLOOD LOSS: 30 cc INTRAOPERATIVE FINDINGS: See below PROCEDURE: The ICU to the holding area than the main operating room where general anesthesia was induced. Right foot was exposed, prepped and draped in sterile fashion. Surgical plan surgical timeout conducted Findings significant for pus draining from the crease between the right great toe and the foot and open wound on the medial aspect of the proximal great toe. Using blunt dissection, a large hole was broken right into the soft tissue. The infection extended along the plantar surface of the toe to the lateral aspect and the connecting skin bridge was debrided. I then performed excisional debridement of the entire perimeter of the wound with Duncan scissors leaving a hole approximately 6 cm long and 3 cm wide. The infection did not extend to the dorsal surface of the toe, the more proximal aspect of the foot or the right second toe. The wound was irrigated with 1 L of saline. Small dermal bleeders were cauterized. The wound was then scrubbed with chlorhexidine scrub brush and irrigated again. We reviewed the wound and concluded that adequate debridement had taken place. The wound was packed with iodoform packing, 4 x 4's Kerlix applied. Patient tolerated the procedure well and taken to recovery room, extubated in stable condition.
[2018-05-09 15:28] LABS: PATH REVIEW PATHOLOGIST REVIEWED
[2018-05-09] MEDS ORDERED: NICOTINE 14 MG/24 HR PATCH.TD24 TD ONE (23:45)
[2018-05-10] MEDS: AZTREONAM 1 GM in DEXTROSE 5%-WATER 50 ML IV SCH (02:54)
[2018-05-10] MEDS: HYDROMORPHONE HCL INJ/PF 2 MG/ML AMPULE IV PRN ×6 (05:08→23:02)
[2018-05-10] MEDS: HYDROCORTISONE SOD SUCCINATE INJ/PF 100 MG/2 ML SDV IV SCH ×3 (05:08→22:55)
[2018-05-10] MEDS: VANCOMYCIN HCL 1,250 MG in DEXTROSE 5%-WATER 250 ML IV SCH ×3 (05:28→22:54)
--- NOTE | 2018-05-10 05:49 | PDOC PROGRESS REPORT ---
Subjective Progress Note for:: 05/09/18 Subjective:: The patient is resting comfortably. No new complaints. Reason For Visit: CELLULITIS OF RIGHT FOOT EVER SEPSIS HYPOTENSION Physical Exam Vital Signs: Temp Pulse Resp BP Pulse Ox 97.9 F 54 L 12 113/75 95 05/10/18 04:00 05/09/18 13:16 05/10/18 04:26 05/10/18 04:26 05/10/18 04:26 Intake & Output 05/08/18 05/09/18 05/10/18 06:59 06:59 06:59 Intake Total 5620 2886 Output Total 3300 2900 Balance 2320 -14 Weight 77.5 kg General appearance: PRESENT: no acute distress, cooperative, well-developed, well-nourished Respiratory exam: PRESENT: other - No increased work of breathing.. ABSENT: rales, rhonchi, wheezes Cardiovascular exam: PRESENT: RRR, other - No lateral PMI. No thrills.. ABSENT : gallop, rubs, systolic murmur Pulses: PRESENT: normal dorsalis pedis pul GI/Abdominal exam: PRESENT: normal bowel sounds, soft. ABSENT: mass, organolmegaly, tenderness Rectal exam: PRESENT: deferred Extremities exam: ABSENT: clubbing, joint swelling, pedal edema Musculoskeletal exam: PRESENT: full ROM, normal inspection. ABSENT: deformity, dislocation, tenderness Neurological exam: PRESENT: alert, awake, oriented to person, oriented to place , oriented to time, oriented to situation, CN II-XII grossly intact. ABSENT: motor sensory deficit Psychiatric exam: PRESENT: appropriate affect, normal mood Skin exam: PRESENT: dry, intact, warm Results Laboratory Results: 05/09/18 05:40 05/09/18 05/09/18 05:40 05:40 WBC 30.6 H* D RBC 3.99 L Hgb 12.0 L D Hct 36.8 L MCV 92 MCH 30.2 MCHC 32.7 RDW 13.3 Plt Count 191 Seg Neutrophils % Not Reportable Lymphocytes % Not Reportable Monocytes % Not Reportable Eosinophils % Not Reportable Basophils % Not Reportable Absolute Neutrophils Not Reportable Absolute Lymphocytes Not Reportable Absolute Monocytes Not Reportable Absolute Eosinophils Not Reportable Absolute Basophils Not Reportable Sodium 141.0 Potassium 4.6 Chloride 104 Carbon Dioxide 25 Anion Gap 12 BUN 15 Creatinine 0.81 Est GFR ( Amer) > 60 Est GFR (Non-Af Amer) > 60 Glucose 109 Calcium 8.7 Impressions: Chest X-Ray 05/08/18 00:00 IMPRESSION: No pneumothorax status post central line placement. Foot X-Ray 05/08/18 13:34 IMPRESSION: NEGATIVE STUDY OF THE RIGHT FOOT. NO RADIOGRAPHIC EVIDENCE OF ACUTE INJURY. Assessment & Plan - Diagnosis (1) Fever Qualifiers: Fever type: unspecified Qualified Code(s): R50.9 - Fever, unspecified Is this a current diagnosis for this admission?: Yes (2) Hypotension Qualifiers: Hypotension type: unspecified hypotension type Qualified Code(s): I95.9 - Hypotension, unspecified Is this a current diagnosis for this admission?: Yes Plan: The patient has been weaned off of dopamine and remains on levophed. Stress doses of steroids. (3) Neutropenia Qualifiers: Neutropenia type: unspecified Qualified Code(s): D70.9 - Neutropenia, unspecified Is this a current diagnosis for this admission?: Yes (4) Sepsis Qualifiers: Sepsis type: sepsis due to unspecified organism Qualified Code(s): A41.9 - Sepsis, unspecified organism Is this a current diagnosis for this admission?: Yes Plan: Blood cultures pending.Still requiring Levophed. (5) Cellulitis and abscess of foot Is this a current diagnosis for this admission?: Yes Plan: The patient has undergone I&D by general surgery. IV antibiotics. - Time Time Spent with patient: 25-34 minutes Medications reviewed and adjusted accordingly: Yes
[2018-05-10 06:14] LABS: VANCOMYCIN,TROUGH 9.7 ug/mL (5.0-20.0)
[2018-05-10] MEDS: RINGERS SOLUTION,LACTATED 1,000 ML IV PRN ×2 (08:10→17:30)
[2018-05-10] MEDS ORDERED: PIPERACILLIN/TAZOBACTAM 4.5 GM VIAL IV ONE (08:17)
[2018-05-10] MEDS ORDERED: VANCOMYCIN HCL 0 MG in DEXTROSE 5%-WATER 250 ML IV NR (08:30)
[2018-05-10] MEDS: ENOXAPARIN SODIUM INJ 40 MG/0.4 ML DISP.SYRIN SUBCUT SCH (10:18)
[2018-05-10 11:09] LABS: HEMATOCRIT 32.2 % (37.9-51.0); HEMOGLOBIN 11.1 g/dL (13.5-17.0); MEAN CORPUSCULAR HEMOGLOBIN 31.5 pg (27.0-33.4); MEAN CORPUSCULAR HGB CONC 34.4 g/dL (32.0-36.0); MEAN CORPUSCULAR VOLUME 92 fl (80-97); PLATELET COUNT 169 10^3/uL (150-450); RED BLOOD COUNT 3.52 10^6/uL (4.35-5.55); RED CELL DISTRIBUTION WIDTH 13.3 % (11.5-14.0); WHITE BLOOD COUNT 24.2 10^3/uL (4.0-10.5)
[2018-05-10 11:46] LABS: ABSOLUTE LYMPHOCYTES# (MANUAL) 0.7 10^3/uL (0.5-4.7); ABSOLUTE MONOCYTES # (MANUAL) 1.2 10^3/uL (0.1-1.4); ABSOLUTE NEUTROPHILS# (MANUAL) 22.3 10^3/uL (1.7-8.2); BAND NEUTROPHILS % (MANUAL) 3 % (3-5); BASOPHILS % (MANUAL) 0 % (0-2); EOSINOPHILS % (MANUAL) 0 % (0-6); LYMPHOCYTES % (MANUAL) 3 % (13-45); MONOCYTES % (MANUAL) 5 % (3-13); PLATELET COMMENT ADEQUATE; RBC MORPHOLOGY COMMENT NORMO-CYTIC/CHROMIC; SEGMENTED NEUTROPHILS % (MAN) 89 % (42-78); TOTAL CELLS COUNTED 100
[2018-05-10] MEDS: PIPERACILLIN SODIUM/TAZOBACTAM 4.5 GM in NORMAL SALINE 100 ML IV SCH ×2 (12:01→17:30)
--- NOTE | 2018-05-10 15:26 | PDOC PROGRESS REPORT ---
Subjective Progress Note for:: 05/10/18 Subjective:: This is 27 years old male patient admitted for cellulitis involving his right foot. Admission patient also found to be neutropenic febrile and hypotensive. Dr. Mccartney who performed total extensive debridement and incision and drainage. His wound culture grew gram-positive cocci in cluster and his blood culture grew gram-negative rods. Patient has been on Zosyn and vancomycin. I seen him sitting up in bed enjoying his breakfast. His vital signs are within normal limits patient is okay for transfer to the regular floor from ICU. Reason For Visit: CELLULITIS OF RIGHT FOOT EVER SEPSIS HYPOTENSION Physical Exam Vital Signs: Temp Pulse Resp BP Pulse Ox 97.6 F 56 L 24 H 110/66 100 05/10/18 08:00 05/10/18 07:36 05/10/18 14:00 05/10/18 13:28 05/10/18 14:00 Intake & Output 05/09/18 05/10/18 05/11/18 06:59 06:59 06:59 Intake Total 5620 4186 775 Output Total 3300 2900 1250 Balance 2320 1286 -475 Weight 77.5 kg General appearance: PRESENT: no acute distress, well-developed Head exam: PRESENT: atraumatic, normocephalic Eye exam: PRESENT: conjunctiva pink. ABSENT: scleral icterus Mouth exam: PRESENT: moist Neck exam: ABSENT: carotid bruit, JVD, lymphadenopathy, thyromegaly Respiratory exam: PRESENT: clear to auscultation mona. ABSENT: rales, rhonchi, wheezes Cardiovascular exam: PRESENT: RRR. ABSENT: diastolic murmur, rubs, systolic murmur GI/Abdominal exam: PRESENT: normal bowel sounds, soft. ABSENT: distended, guarding, mass, organolmegaly, rebound, tenderness Rectal exam: PRESENT: deferred Extremities exam: PRESENT: full ROM, other - Right foot is Best well there is no oozing or soaking.. ABSENT: calf tenderness, clubbing, pedal edema Neurological exam: PRESENT: alert, awake, oriented to person, oriented to place , oriented to time, oriented to situation Psychiatric exam: PRESENT: appropriate affect, normal mood. ABSENT: homicidal ideation, suicidal ideation Skin exam: PRESENT: dry, intact, warm. ABSENT: cyanosis, rash Results Laboratory Results: 05/10/18 10:50 05/10/18 05:10 05/10/18 05/10/18 05:10 10:50 WBC 24.2 H RBC 3.52 L Hgb 11.1 L Hct 32.2 L MCV 92 MCH 31.5 MCHC 34.4 RDW 13.3 Plt Count 169 Seg Neutrophils % Not Reportable Lymphocytes % Not Reportable Monocytes % Not Reportable Eosinophils % Not Reportable Basophils % Not Reportable Absolute Neutrophils Not Reportable Absolute Lymphocytes Not Reportable Absolute Monocytes Not Reportable Absolute Eosinophils Not Reportable Absolute Basophils Not Reportable Creatinine 0.68 Est GFR ( Amer) > 60 Est GFR (Non-Af Amer) > 60 Impressions: Chest X-Ray 05/08/18 00:00 IMPRESSION: No pneumothorax status post central line placement. Foot X-Ray 05/08/18 13:34 IMPRESSION: NEGATIVE STUDY OF THE RIGHT FOOT. NO RADIOGRAPHIC EVIDENCE OF ACUTE INJURY. Assessment & Plan - Diagnosis (1) Sepsis Qualifiers: Sepsis type: sepsis due to unspecified organism Qualified Code(s): A41.9 - Sepsis, unspecified organism Is this a current diagnosis for this admission?: Yes Plan: Continue Zosyn and vancomycin. Sepsis as evidenced by neutropenia, hypotension, fever and source of infection. (2) Cellulitis and abscess of foot Is this a current diagnosis for this admission?: Yes Plan: Status post incision and drainage. Continue local wound care. Continue current antibiotics. - Time Time Spent with patient: 25-34 minutes
--- NOTE | 2018-05-10 21:07 | PDOC PROGRESS REPORT ---
Subjective Progress Note for:: 05/10/18 Subjective:: Right foot Pains Reason For Visit: CELLULITIS OF RIGHT FOOT EVER SEPSIS HYPOTENSION Physical Exam Vital Signs: Temp Pulse Resp BP Pulse Ox 98.6 F 56 L 18 137/85 H 100 05/10/18 19:49 05/10/18 07:36 05/10/18 18:00 05/10/18 17:28 05/10/18 18:00 Intake & Output 05/09/18 05/10/18 05/11/18 06:59 06:59 06:59 Intake Total 5620 4186 2125 Output Total 3300 2900 1650 Balance 2320 1286 475 Weight 77.5 kg Exam: Packing from right big toe was removed. It looks clean and dry. Small amount of bleeding noted. Repacked with iodoform gauze which controlled the bleeding. Results Laboratory Results: 05/10/18 10:50 05/10/18 05:10 05/10/18 05/10/18 05:10 10:50 WBC 24.2 H RBC 3.52 L Hgb 11.1 L Hct 32.2 L MCV 92 MCH 31.5 MCHC 34.4 RDW 13.3 Plt Count 169 Seg Neutrophils % Not Reportable Lymphocytes % Not Reportable Monocytes % Not Reportable Eosinophils % Not Reportable Basophils % Not Reportable Absolute Neutrophils Not Reportable Absolute Lymphocytes Not Reportable Absolute Monocytes Not Reportable Absolute Eosinophils Not Reportable Absolute Basophils Not Reportable Creatinine 0.68 Est GFR ( Amer) > 60 Est GFR (Non-Af Amer) > 60 Impressions: Chest X-Ray 05/08/18 00:00 IMPRESSION: No pneumothorax status post central line placement. Foot X-Ray 05/08/18 13:34 IMPRESSION: NEGATIVE STUDY OF THE RIGHT FOOT. NO RADIOGRAPHIC EVIDENCE OF ACUTE INJURY. Assessment & Plan - Time Time Spent with patient: 15-24 minutes - Inpatient Certification Medical Necessity: Need For IV Fluids, Need for Pain Control, Need for IV Antibiotics - Plan Summary Plan Summary: Continue IV antibiotics Elevate right leg/foot Continue with daily packing with iodoform gauze whilw in hospital [facility]eds [facility] who has [facility] surgeon, after discharge.
[2018-05-10] MEDS: NICOTINE 14 MG/24 HR PATCH.TD24 TD SCH (22:54)
[2018-05-11] MEDS: PIPERACILLIN SODIUM/TAZOBACTAM 4.5 GM in NORMAL SALINE 100 ML IV SCH ×3 (00:42→11:56)
[2018-05-11] MEDS: HYDROMORPHONE HCL INJ/PF 2 MG/ML AMPULE IV PRN ×8 (04:22→22:49)
[2018-05-11] MEDS: HYDROCORTISONE SOD SUCCINATE INJ/PF 100 MG/2 ML SDV IV SCH ×3 (06:07→22:48)
[2018-05-11] MEDS: VANCOMYCIN HCL 1,250 MG in DEXTROSE 5%-WATER 250 ML IV SCH (06:07)
[2018-05-11] MEDS: RINGERS SOLUTION,LACTATED 1,000 ML IV PRN (08:17)
[2018-05-11] MEDS: ENOXAPARIN SODIUM INJ 40 MG/0.4 ML DISP.SYRIN SUBCUT SCH (10:15)
--- NOTE | 2018-05-11 17:46 | PDOC PROGRESS REPORT ---
Subjective Reason For Visit: CELLULITIS OF RIGHT FOOT EVER SEPSIS HYPOTENSION Physical Exam Vital Signs: Temp Pulse Resp BP Pulse Ox 97.5 F 56 L 16 143/106 H 95 05/11/18 17:15 05/11/18 17:15 05/11/18 17:15 05/11/18 17:15 05/11/18 17:15 Intake & Output 05/10/18 05/11/18 05/12/18 06:59 06:59 06:59 Intake Total 4186 3575 350 Output Total 2900 1650 500 Balance 1286 1925 -150 Weight 77.5 kg 79 kg Results Laboratory Results: 05/10/18 10:50 05/10/18 05:10 05/09/18 14:05 Foot - Abscess Gram Stain - Final 05/09/18 14:05 Foot - Abscess Wound Culture - Final Staphylococcus Aureus No Anaerobic Organisms 05/09/18 07:48 Foot - Sore Gram Stain - Final 05/09/18 07:48 Foot - Sore Wound Culture - Final Staphylococcus Aureus Impressions: Chest X-Ray 05/08/18 00:00 IMPRESSION: No pneumothorax status post central line placement. Foot X-Ray 05/08/18 13:34 IMPRESSION: NEGATIVE STUDY OF THE RIGHT FOOT. NO RADIOGRAPHIC EVIDENCE OF ACUTE INJURY. Assessment & Plan - Plan Summary Plan Summary: 27-year-old male status post incision and drainage of a right foot abscess. The wound is clean and healthy. No active purulence. I will change the patient 's dressings order --> begin damp to dry dressings twice daily. Continue antibiotics. The patient will require long-term wound care for his foot wound.
[2018-05-11] MEDS: NICOTINE 14 MG/24 HR PATCH.TD24 TD SCH (22:48)
[2018-05-12] MEDS: HYDROMORPHONE HCL INJ/PF 2 MG/ML AMPULE IV PRN ×6 (04:35→22:16)
[2018-05-12 05:41] LABS: HEMATOCRIT 31.6 % (37.9-51.0); MEAN CORPUSCULAR HEMOGLOBIN 31.6 pg (27.0-33.4); MEAN CORPUSCULAR HGB CONC 34.7 g/dL (32.0-36.0); MEAN CORPUSCULAR VOLUME 91 fl (80-97); PLATELET COUNT 184 10^3/uL (150-450); RED BLOOD COUNT 3.47 10^6/uL (4.35-5.55); RED CELL DISTRIBUTION WIDTH 12.7 % (11.5-14.0); WHITE BLOOD COUNT 14.4 10^3/uL (4.0-10.5)
[2018-05-12 06:24] LABS: ABSOLUTE LYMPHOCYTES# (MANUAL) 3.3 10^3/uL (0.5-4.7); ABSOLUTE MONOCYTES # (MANUAL) 0.6 10^3/uL (0.1-1.4); ABSOLUTE NEUTROPHILS# (MANUAL) 10.5 10^3/uL (1.7-8.2); BAND NEUTROPHILS % (MANUAL) 6 % (3-5); BASOPHILS % (MANUAL) 0 % (0-2); EOSINOPHILS % (MANUAL) 0 % (0-6); LYMPHOCYTES % (MANUAL) 22 % (13-45); MONOCYTES % (MANUAL) 4 % (3-13); SEGMENTED NEUTROPHILS % (MAN) 67 % (42-78); TOTAL CELLS COUNTED 100
[2018-05-12 06:25] LABS: TOXIC GRANULATION SLIGHT
[2018-05-12 06:26] LABS: HYPOCHROMASIA 1+; PLATELET COMMENT ADEQUATE
[2018-05-12] MEDS: HYDROCORTISONE SOD SUCCINATE INJ/PF 100 MG/2 ML SDV IV SCH ×3 (06:45→22:17)
[2018-05-12] MEDS ORDERED: CEFTRIAXONE 2 GM/D5W RTU 2 GM/50 ML RTUPB IV SCH (10:00)
[2018-05-12] MEDS ORDERED: CEFTRIAXONE SODIUM 2,000 MG in DEXTROSE 5%-WATER 100 ML IV SCH (10:00)
[2018-05-12] MEDS: CEFTRIAXONE SODIUM 2,000 MG in NORMAL SALINE 100 ML IV SCH (10:00)
[2018-05-12] MEDS: ENOXAPARIN SODIUM INJ 40 MG/0.4 ML DISP.SYRIN SUBCUT SCH (10:00)
[2018-05-12] MEDS ORDERED: OXYCODONE-ACETAMINOPHEN 5-325 MG TABLET PO PRN (11:31)
[2018-05-12] MEDS ORDERED: HYDROMORPHONE HCL INJ/PF 2 MG/ML AMPULE IV PRN (11:32)
[2018-05-12] MEDS: LORAZEPAM INJ 2 MG/1 ML VIAL IV PRN ×2 (13:39→23:10)
--- NOTE | 2018-05-12 15:27 | PDOC PROGRESS REPORT ---
Subjective Subjective:: Seen patient resting in bed and while wound VAC applied to his wound by Dr. Scales. His wound is granulating well. Reason For Visit: CELLULITIS OF RIGHT FOOT EVER SEPSIS HYPOTENSION Physical Exam Vital Signs: Temp Pulse Resp BP Pulse Ox 97.7 F 39 L 14 143/94 H 99 05/12/18 07:44 05/12/18 07:44 05/12/18 07:44 05/12/18 07:44 05/12/18 07:44 Intake & Output 05/11/18 05/12/18 05/13/18 06:59 06:59 06:59 Intake Total 3575 350 1100 Output Total 1650 1100 Balance 1925 -750 1100 Weight 79 kg General appearance: PRESENT: no acute distress, well-developed, well-nourished Head exam: PRESENT: atraumatic, normocephalic Eye exam: PRESENT: conjunctiva pink, EOMI, PERRLA. ABSENT: scleral icterus Ear exam: PRESENT: normal external ear exam Mouth exam: PRESENT: moist, tongue midline Neck exam: ABSENT: carotid bruit, JVD, lymphadenopathy, thyromegaly Respiratory exam: PRESENT: clear to auscultation mona. ABSENT: rales, rhonchi, wheezes Cardiovascular exam: PRESENT: RRR. ABSENT: diastolic murmur, rubs, systolic murmur Pulses: PRESENT: normal dorsalis pedis pul Vascular exam: PRESENT: normal capillary refill GI/Abdominal exam: PRESENT: normal bowel sounds, soft. ABSENT: distended, guarding, mass, organolmegaly, rebound, tenderness Rectal exam: PRESENT: deferred Extremities exam: PRESENT: full ROM, other - Right leg dressed and wound VAC in place. ABSENT: calf tenderness, clubbing, pedal edema Neurological exam: PRESENT: alert, awake, oriented to person, oriented to place , oriented to time, oriented to situation, CN II-XII grossly intact. ABSENT: motor sensory deficit Psychiatric exam: PRESENT: appropriate affect, normal mood. ABSENT: homicidal ideation, suicidal ideation Skin exam: PRESENT: dry, intact, warm. ABSENT: cyanosis, rash Results Laboratory Results: 05/12/18 05:05 05/10/18 05:10 05/12/18 05:05 WBC 14.4 H RBC 3.47 L Hgb 11.0 L Hct 31.6 L MCV 91 MCH 31.6 MCHC 34.7 RDW 12.7 Plt Count 184 Seg Neutrophils % Not Reportable Lymphocytes % Not Reportable Monocytes % Not Reportable Eosinophils % Not Reportable Basophils % Not Reportable Absolute Neutrophils Not Reportable Absolute Lymphocytes Not Reportable Absolute Monocytes Not Reportable Absolute Eosinophils Not Reportable Absolute Basophils Not Reportable Impressions: Chest X-Ray 05/08/18 00:00 IMPRESSION: No pneumothorax status post central line placement. Foot X-Ray 05/08/18 13:34 IMPRESSION: NEGATIVE STUDY OF THE RIGHT FOOT. NO RADIOGRAPHIC EVIDENCE OF ACUTE INJURY. Assessment & Plan - Diagnosis (1) Sepsis Qualifiers: Sepsis type: sepsis due to unspecified organism Qualified Code(s): A41.9 - Sepsis, unspecified organism Is this a current diagnosis for this admission?: Yes Plan: Continue Zosyn and vancomycin. Sepsis as evidenced by neutropenia, hypotension, fever and source of infection. (2) Cellulitis and abscess of foot Is this a current diagnosis for this admission?: Yes Plan: His wound culture grew MSSA which is pansensitive except for imipenem and erythromycin. I discontinued Zosyn and patient has been started on ceftriaxone 2 g IV daily.
[2018-05-12] MEDS: NICOTINE 14 MG/24 HR PATCH.TD24 TD SCH (22:18)
--- NOTE | 2018-05-12 22:24 | PDOC PROGRESS REPORT ---
Subjective Progress Note for:: 05/12/18 Subjective:: Pains along wound site Reason For Visit: CELLULITIS OF RIGHT FOOT EVER SEPSIS HYPOTENSION Physical Exam Vital Signs: Temp Pulse Resp BP Pulse Ox 98.3 F 68 16 107/63 99 05/12/18 20:00 05/12/18 20:00 05/12/18 20:00 05/12/18 20:00 05/12/18 20:00 Intake & Output 05/11/18 05/12/18 05/13/18 06:59 06:59 06:59 Intake Total 3575 350 1100 Output Total 1650 1100 Balance 1925 -750 1100 Weight 79 kg Exam: A wound Vac was applied. Patient appears to have more pains after wound vac placed Results Laboratory Results: 05/12/18 05:05 05/10/18 05:10 05/12/18 05:05 WBC 14.4 H RBC 3.47 L Hgb 11.0 L Hct 31.6 L MCV 91 MCH 31.6 MCHC 34.7 RDW 12.7 Plt Count 184 Seg Neutrophils % Not Reportable Lymphocytes % Not Reportable Monocytes % Not Reportable Eosinophils % Not Reportable Basophils % Not Reportable Absolute Neutrophils Not Reportable Absolute Lymphocytes Not Reportable Absolute Monocytes Not Reportable Absolute Eosinophils Not Reportable Absolute Basophils Not Reportable Impressions: Chest X-Ray 05/08/18 00:00 IMPRESSION: No pneumothorax status post central line placement. Foot X-Ray 05/08/18 13:34 IMPRESSION: NEGATIVE STUDY OF THE RIGHT FOOT. NO RADIOGRAPHIC EVIDENCE OF ACUTE INJURY. Assessment & Plan - Time Time Spent with patient: 15-24 minutes - Inpatient Certification Medical Necessity: Need for Pain Control, Need for IV Antibiotics - Plan Summary Plan Summary: Wound Vac placed but may need to be removed because of severe pains post placement. The wound looks clean and ready for wound Vac. Will re-evaluate tonight and see if with less pains. Otherwise will D/C Vac temporarily. Continue IV antibiotics
[2018-05-13] MEDS: HYDROMORPHONE HCL INJ/PF 2 MG/ML AMPULE IV PRN ×7 (01:40→21:40)
[2018-05-13] MEDS: HYDROCORTISONE SOD SUCCINATE INJ/PF 100 MG/2 ML SDV IV SCH ×3 (05:06→21:39)
[2018-05-13 06:40] LABS: HEMATOCRIT 34.1 % (37.9-51.0); HEMOGLOBIN 11.6 g/dL (13.5-17.0); MEAN CORPUSCULAR HEMOGLOBIN 30.8 pg (27.0-33.4); MEAN CORPUSCULAR HGB CONC 34.1 g/dL (32.0-36.0); MEAN CORPUSCULAR VOLUME 90 fl (80-97); PLATELET COUNT 161 10^3/uL (150-450); RED BLOOD COUNT 3.78 10^6/uL (4.35-5.55); RED CELL DISTRIBUTION WIDTH 12.9 % (11.5-14.0); WHITE BLOOD COUNT 22.2 10^3/uL (4.0-10.5)
[2018-05-13 07:22] LABS: ABSOLUTE MONOCYTES # (MANUAL) 0.4 10^3/uL (0.1-1.4); ABSOLUTE NEUTROPHILS# (MANUAL) 19.8 10^3/uL (1.7-8.2); BAND NEUTROPHILS % (MANUAL) 1 % (3-5); BASOPHILS % (MANUAL) 0 % (0-2); EOSINOPHILS % (MANUAL) 0 % (0-6); LYMPHOCYTES % (MANUAL) 9 % (13-45); METAMYELOCYTES % (MANUAL) 1 % (0); MONOCYTES % (MANUAL) 2 % (3-13); SEGMENTED NEUTROPHILS % (MAN) 87 % (42-78); TOTAL CELLS COUNTED 100
[2018-05-13 07:23] LABS: PLATELET COMMENT ADEQUATE; RBC MORPHOLOGY COMMENT NORMO-CYTIC/CHROMIC
[2018-05-13] MEDS: LORAZEPAM INJ 2 MG/1 ML VIAL IV PRN ×2 (08:04→17:53)
--- NOTE | 2018-05-13 10:19 | PDOC PROGRESS REPORT ---
Subjective Progress Note for:: 05/13/18 Subjective:: No new complaint. No significant event overnight. I plan to discharge this patient today but I hold the discharge because his white cell count spiked up from 14,000-to- 22,000. Reason For Visit: CELLULITIS OF RIGHT FOOT EVER SEPSIS HYPOTENSION Physical Exam Vital Signs: Temp Pulse Resp BP Pulse Ox 98.1 F 52 L 16 158/102 H 97 05/13/18 08:22 05/13/18 08:22 05/13/18 08:22 05/13/18 08:22 05/13/18 08:22 Intake & Output 05/12/18 05/13/18 05/14/18 06:59 06:59 06:59 Intake Total 350 2900 Output Total 1100 4825 Balance -750 -1925 Weight 82.8 kg General appearance: PRESENT: no acute distress Eye exam: PRESENT: conjunctiva pink Mouth exam: PRESENT: moist Neck exam: ABSENT: carotid bruit, JVD, lymphadenopathy, thyromegaly Cardiovascular exam: PRESENT: RRR. ABSENT: diastolic murmur, rubs, systolic murmur Vascular exam: PRESENT: normal capillary refill GI/Abdominal exam: PRESENT: normal bowel sounds, soft. ABSENT: distended, guarding, mass, organolmegaly, rebound, tenderness Extremities exam: PRESENT: other - Wound VAC in situ of the right foot Neurological exam: PRESENT: alert, awake, oriented to time, oriented to situation Psychiatric exam: PRESENT: normal mood Results Laboratory Results: 05/13/18 06:05 05/10/18 05:10 05/13/18 06:05 WBC 22.2 H RBC 3.78 L Hgb 11.6 L Hct 34.1 L MCV 90 MCH 30.8 MCHC 34.1 RDW 12.9 Plt Count 161 Seg Neutrophils % Not Reportable Lymphocytes % Not Reportable Monocytes % Not Reportable Eosinophils % Not Reportable Basophils % Not Reportable Absolute Neutrophils Not Reportable Absolute Lymphocytes Not Reportable Absolute Monocytes Not Reportable Absolute Eosinophils Not Reportable Absolute Basophils Not Reportable Impressions: Chest X-Ray 05/08/18 00:00 IMPRESSION: No pneumothorax status post central line placement. Foot X-Ray 05/08/18 13:34 IMPRESSION: NEGATIVE STUDY OF THE RIGHT FOOT. NO RADIOGRAPHIC EVIDENCE OF ACUTE INJURY. Assessment & Plan - Diagnosis (1) Sepsis Qualifiers: Sepsis type: sepsis due to unspecified organism Qualified Code(s): A41.9 - Sepsis, unspecified organism Is this a current diagnosis for this admission?: Yes Plan: Continue Zosyn and vancomycin. Sepsis as evidenced by neutropenia, hypotension, fever and source of infection. (2) Cellulitis and abscess of foot Is this a current diagnosis for this admission?: Yes Plan: His wound culture grew MSSA which is pansensitive except for imipenem and erythromycin. I discontinued Zosyn and patient has been started on ceftriaxone 2 g IV daily.
--- NOTE | 2018-05-13 10:28 | PDOC PROGRESS REPORT ---
Subjective Progress Note for:: 05/13/18 Subjective:: Less pains at right big toe amp site Wound vac in place with low leak Will change vac dressings tomorrow and inform Dr Beverly Reason For Visit: CELLULITIS OF RIGHT FOOT EVER SEPSIS HYPOTENSION Physical Exam Vital Signs: Temp Pulse Resp BP Pulse Ox 98.1 F 52 L 16 158/102 H 97 05/13/18 08:22 05/13/18 08:22 05/13/18 08:22 05/13/18 08:22 05/13/18 08:22 Intake & Output 05/12/18 05/13/18 05/14/18 06:59 06:59 06:59 Intake Total 350 2900 Output Total 1100 4825 Balance -750 -5197 Weight 82.8 kg Results Laboratory Results: 05/13/18 06:05 05/10/18 05:10 05/13/18 06:05 WBC 22.2 H RBC 3.78 L Hgb 11.6 L Hct 34.1 L MCV 90 MCH 30.8 MCHC 34.1 RDW 12.9 Plt Count 161 Seg Neutrophils % Not Reportable Lymphocytes % Not Reportable Monocytes % Not Reportable Eosinophils % Not Reportable Basophils % Not Reportable Absolute Neutrophils Not Reportable Absolute Lymphocytes Not Reportable Absolute Monocytes Not Reportable Absolute Eosinophils Not Reportable Absolute Basophils Not Reportable Impressions: Chest X-Ray 05/08/18 00:00 IMPRESSION: No pneumothorax status post central line placement. Foot X-Ray 05/08/18 13:34 IMPRESSION: NEGATIVE STUDY OF THE RIGHT FOOT. NO RADIOGRAPHIC EVIDENCE OF ACUTE INJURY.
[2018-05-13] MEDS: CEFTRIAXONE SODIUM 2,000 MG in NORMAL SALINE 100 ML IV SCH (10:48)
[2018-05-13] MEDS: ENOXAPARIN SODIUM INJ 40 MG/0.4 ML DISP.SYRIN SUBCUT SCH (10:52)
[2018-05-13] MEDS: NICOTINE 14 MG/24 HR PATCH.TD24 TD SCH (21:57)
[2018-05-14] MEDS: LORAZEPAM INJ 2 MG/1 ML VIAL IV PRN ×2 (03:12→13:01)
[2018-05-14] MEDS: HYDROMORPHONE HCL INJ/PF 2 MG/ML AMPULE IV PRN ×4 (03:12→13:01)
[2018-05-14 05:49] LABS: HEMATOCRIT 37.1 % (37.9-51.0); HEMOGLOBIN 12.7 g/dL (13.5-17.0); MEAN CORPUSCULAR HEMOGLOBIN 30.9 pg (27.0-33.4); MEAN CORPUSCULAR HGB CONC 34.1 g/dL (32.0-36.0); MEAN CORPUSCULAR VOLUME 91 fl (80-97); PLATELET COUNT 176 10^3/uL (150-450); RED BLOOD COUNT 4.09 10^6/uL (4.35-5.55); RED CELL DISTRIBUTION WIDTH 12.8 % (11.5-14.0); WHITE BLOOD COUNT 13.7 10^3/uL (4.0-10.5)
[2018-05-14] MEDS: HYDROCORTISONE SOD SUCCINATE INJ/PF 100 MG/2 ML SDV IV SCH (06:39)
[2018-05-14 07:28] LABS: ABSOLUTE LYMPHOCYTES# (MANUAL) 2.3 10^3/uL (0.5-4.7); ABSOLUTE MONOCYTES # (MANUAL) 1.1 10^3/uL (0.1-1.4); ABSOLUTE NEUTROPHILS# (MANUAL) 10.3 10^3/uL (1.7-8.2); BAND NEUTROPHILS % (MANUAL) 1 % (3-5); BASOPHILS % (MANUAL) 0 % (0-2); EOSINOPHILS % (MANUAL) 0 % (0-6); LYMPHOCYTES % (MANUAL) 17 % (13-45); MONOCYTES % (MANUAL) 8 % (3-13); SEGMENTED NEUTROPHILS % (MAN) 74 % (42-78); TOTAL CELLS COUNTED 100
[2018-05-14 07:30] LABS: PLATELET COMMENT ADEQUATE; POLYCHROMASIA SLIGHT; TOXIC GRANULATION 1+
[2018-05-14] MEDS: CEFTRIAXONE SODIUM 2,000 MG in NORMAL SALINE 100 ML IV SCH (09:42)
--- NOTE | 2018-05-14 10:10 | PDOC DISCHARGE SUMMARY ---
General - Admit/Disc Date/PCP Admission Date/Primary Care Provider: 05/08/18 15:10 Discharge Date: 05/14/18 - Discharge Diagnosis (1) Sepsis Is this a current diagnosis for this admission?: Yes (2) Cellulitis and abscess of foot Is this a current diagnosis for this admission?: Yes - Additional Information Resuscitation Status: Full Code Home Medications: No Home Medications 05/08/18 History of Present Illness History of Present Illness: VISHNU FINK is a 27 year old male who really has no past medical history. He states that he started noticing left foot erythema and pain on Wednesday of last week. He came to the ED on Wednesday. His foot was I & D'd in the ED. He was discharged on keflex and bactrim. The patient states that this morning he awoke to find his foot excrutiating painfull and bleeding. When in the ED the patient was found to be febrile, to have leukopenia when he had had leukocytosis on Wednesday, and tachycardia. Blood cultures were drawn. The patient was given pain control, IV fluids, and IV antibiotics. When I went to see the patient he was quite somnolent due to recent pain medication. Hospital Course Hospital Course: This is 27 years old male patient admitted for cellulitis involving his right foot. Admission patient also found to be neutropenic febrile and hypotensive. Dr. Mccartney performed thorough extensive debridement and incision and drainage. His wound culture grew gram-positive cocci in cluster and his blood culture grew gram-negative rods. Initially patient has been on Zosyn and vancomycin later ID escalate his antibiotics to ceftriaxone only since his wound culture grew MSSA which is pansensitive except for imipenem. Patient's conditions improved remarkably he was transferred from ICU to the regular floor. This morning I seen patient resting in bed comfortably. He is not in pain or any form of distress. He is awake alert oriented. He is stable enough to be discharged today we will send him home with wound VAC and Augmentin for additional 5 days. Physical Exam Vital Signs: Temp Pulse Resp BP Pulse Ox 97.7 F 47 L 16 142/101 H 97 05/14/18 07:34 05/14/18 07:34 05/14/18 07:34 05/14/18 07:34 05/14/18 07:34 Intake & Output 08/05/14/18 05/15/18 06:59 06:59 06:59 Intake Total 2900 1838 Output Total 4867 3250 Balance -1925 -1412 Weight 82.8 kg 81.3 kg General appearance: PRESENT: no acute distress, well-developed, well-nourished Head exam: PRESENT: atraumatic, normocephalic Eye exam: PRESENT: conjunctiva pink, EOMI, PERRLA. ABSENT: scleral icterus Ear exam: PRESENT: normal external ear exam Mouth exam: PRESENT: moist, tongue midline Neck exam: ABSENT: carotid bruit, JVD, lymphadenopathy, thyromegaly Respiratory exam: PRESENT: clear to auscultation mona. ABSENT: rales, rhonchi, wheezes Cardiovascular exam: PRESENT: RRR. ABSENT: diastolic murmur, rubs, systolic murmur Pulses: PRESENT: normal dorsalis pedis pul Vascular exam: PRESENT: normal capillary refill GI/Abdominal exam: PRESENT: normal bowel sounds, soft. ABSENT: distended, guarding, mass, organolmegaly, rebound, tenderness Rectal exam: PRESENT: deferred Extremities exam: PRESENT: full ROM, other - Wound VAC in situ. ABSENT: calf tenderness, clubbing, pedal edema Neurological exam: PRESENT: alert, awake, oriented to person, oriented to place , oriented to time, oriented to situation, CN II-XII grossly intact. ABSENT: motor sensory deficit Psychiatric exam: PRESENT: appropriate affect, normal mood. ABSENT: homicidal ideation, suicidal ideation Skin exam: PRESENT: dry, intact, warm. ABSENT: cyanosis, rash Results Laboratory Results: 05/14/18 05:13 05/10/18 05:10 05/14/18 05:13 WBC 13.7 H RBC 4.09 L Hgb 12.7 L Hct 37.1 L MCV 91 MCH 30.9 MCHC 34.1 RDW 12.8 Plt Count 176 Seg Neutrophils % Not Reportable Lymphocytes % Not Reportable Monocytes % Not Reportable Eosinophils % Not Reportable Basophils % Not Reportable Absolute Neutrophils Not Reportable Absolute Lymphocytes Not Reportable Absolute Monocytes Not Reportable Absolute Eosinophils Not Reportable Absolute Basophils Not Reportable Impressions: Chest X-Ray 05/08/18 00:00 IMPRESSION: No pneumothorax status post central line placement. Foot X-Ray 05/08/18 13:34 IMPRESSION: NEGATIVE STUDY OF THE RIGHT FOOT. NO RADIOGRAPHIC EVIDENCE OF ACUTE INJURY. Qualifiers - * PATIENT BEING DISCHARGED WITH ANY OF THE FOLLOWING DIAGNOSIS: No
[2018-05-14] MEDS: ENOXAPARIN SODIUM INJ 40 MG/0.4 ML DISP.SYRIN SUBCUT SCH (11:17)
[2018-05-14 13:45] VITALS: BP 147/91
--- NOTE | 2018-05-14 14:55 | Operative Report ---
Nonrecallable Operative Report DATE OF SURGERY: 05/14/18 PREOPERATIVE DIAGNOSIS: Large wound to the right foot POSTOPERATIVE DIAGNOSIS: Same as above OPERATION: Negative pressure wound management system placed to the plantar surface of the right foot (4 x 1 x 1 cm) SURGEON: AYDIN RASCON ANESTHESIA: Other - None TISSUE REMOVED OR ALTERED: None COMPLICATIONS: None apparent ESTIMATED BLOOD LOSS: Minimal PROCEDURE: After consent was obtained from the patient, he was laid in the supine position in the hospital room. The old negative pressure wound management system was removed. The wound was inspected. There was good granulation tissue present. There was no necrosis or unhealthy tissue. The wound measured to be approximately 4 x 1 x 1 cm. A single 4 x 4 gauze was laid in the wound. The sponge was laid over the 4 x 4 gauze. The occlusive dressing was then placed over the sponge, and suction was applied. The wound VAC appeared to have good seal. At this time the procedure was concluded. All sponge, instrument, and needle counts were correct. Condition: Stable.
== END 2018-05-14 14:45 | disposition home health service (06) | DRG 854 ==
LOC: ER 11:21 → EH 15:10 → ICU 05-09 09:25 → 4N 05-11 17:16
PROVIDERS: ADMIT Internal Medicine; ATTEND Internal Medicine
PROC: 02HV33Z Insertion of Infusion Device into Superior Vena Cava, Percutaneous Approach (ICD-10-PCS; 2018-05-08)
PROC: 0JBQ0ZZ Excision of Right Foot Subcutaneous Tissue and Fascia, Open Approach (ICD-10-PCS; principal; 2018-05-09 12:30)
PROC: 2W0SX6Z Change Pressure Dressing on Right Foot (ICD-10-PCS; 2018-05-14)
DX: A41.9 Sepsis, unspecified organism (principal); L03.115 Cellulitis of right lower limb; L02.611 Cutaneous abscess of right foot; D70.9 Neutropenia, unspecified; B95.61 Methicillin susceptible Staphylococcus aureus infection as the cause of diseases classified elsewhere; F17.210 Nicotine dependence, cigarettes, uncomplicated; Z86.14 Personal history of Methicillin resistant Staphylococcus aureus infection
CPT/HCPCS: 01470; 36415; 71045; 80048; 80053; 80202; 81001; 82550; 82565; 83605; 85025; 87040; 87070; 87075; 87077; 87186; 87205; 96361; 96365; 96375; 99291; A6266; C1751; J0696; J1170; J1650; J1720; J1885; J2060; J2250; J2405; J2543; J2704; J3010; J3370; J3490; J7030; J7060; J7120